=== PATIENT | female | born 1960 | race Two or more races ===

== ENCOUNTER 2025-06-13 14:57 | Emergency (ER) | payer MEDICAID, OTHER ==
[~2025-06-13] VITALS: Ht 160 cm; Wt 63.6 kg
[2025-06-13] MEDS ORDERED: EPINEPHrine HCL 1 MG/10 ML SYRG IV ONE ×2 (14:58)
[2025-06-13] MEDS ORDERED: SODIUM BICARB 8.4% 50Meq/50ml SYR INJ IV ONE (14:58)
[2025-06-13] MEDS ORDERED: CALCIUM CHLOR(10%) 100MG/ML 10ML SYRINGE IV ONE (14:58)
[2025-06-13 15:02] VITALS: BP 0/0; PULSE 0; RESP 0; TEMP 98.8; O2SAT 0
--- NOTE | 2025-06-13 15:13 | ED.PDOC ---
CPR-HPI HPI Comments This is a 65 year-old female, BIB EMS, for cardiac arrest. Per EMS, patient went down while at a restaurant. Patient was given X1 round of EPI when departing the restaurant and asystole on the monitor en route. Per EMS, patient was down X10 minutes prior to ED arrival. CPR was initiated at approximately 1445 via EMS, and continues to be in progress at this time. 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 Social History Smoker: Unobtainable Alcohol: Unobtainable Drugs: Unobtainable Lives In: Unobtainable Unable to Obtain due to: Medical Urgency All Other Systems: Deferred Physical Exam General Appearance: Severe Distress HEENT: Other (Pupils fixed dilated) Neck: NOT DONE Respiratory: Respiratory Distress, Other (Intubated the patient in the ER) Cardiovascular: Other (No pulse) Breast Exam: Deferred Gastrointestinal: Soft Genitalia: Deferred Pelvic: Deferred Rectal: Deferred Extremities: Other Musculoskeletal : Apperance: Normal Neurologic: Other (Unconscious) Cerebellar Function: NOT DONE Reflexes: NOT DONE Skin: Pallor Peripheral Pulses: 3+ Radial (R), 3+ Radial (L) Lymphatic: No Adenopathy Was a procedure done? Was a procedure done?: Yes Sedation Sedation?: No Informed consent obtained: No Intubation Indication: Altered Mental Status Pretreated with: Nothing Medicated with: Nothing Intubation Approach: Orotracheal Intubation size: cm (8.0) Informed consent obtained: No Risks/benefits/alt described: No Differential Dx CPR Differential Diagnosis: Cardiopulmonary arrest X-Ray, Labs, Meds, VS Vital Signs Date Time Temp Pulse Resp B/P (MAP) Pulse Ox O2 Delivery O2 Flow Rate FiO2 06/13/25 15:02 98.8 0 0 0/0 0 98.8 Patient unconscious pain CPR in progress pain Came in without a tube. Intubated the patient in the ER. Continuous CPR. ACLS drugs use. Family at bedside. Massive CO. Was given fluids. Was in asystole entire time. Pupils fixed and dilated. Spoke with the team. Explained to the family. Had to pronounce. Time of 1ST Reevaluation: 15:12 Reevaluation 1ST: Unchanged Patient Education/Counseling: Pt Unresponsive Family Education/Counseling: No Family Present SEPSIS Sepsis Screen Date sepsis recognized/suspect: Jun 13, 2025 Time Sepsis recognized/suspect: 1500 Recent Procedure: No On Antibiotic Therapy: No Respiratory Rate >20: No Heart Rate >90: No Temp<36 C (96.8 F) or >38.3 C: No SBP <90 or MAP <65 mmHG: No New Acute Mental Status Change: Yes Is the patient on CPAP, BIPAP,: Yes Vital Signs Date Time Temp Pulse Resp B/P (MAP) Pulse Ox O2 Delivery O2 Flow Rate FiO2 06/13/25 15:02 98.8 0 0 0/0 0 98.8 Departure 1 Departure Time of Disposition: 16:55 Impression: Primary Impression: Cardiac arrest Disposition: 20 Condition: Serious Critical Care Note Critical Care Time?: Yes (45 min-critical care time only) Heart Score Heart Score: Heart Score Response (Comments) Value History Highly Suspicious 2 EKG N/A 0 Age 45-64 1 Risk Factors N/A 0 Troponin N/A 0 Total 3 Stability Stability form required: No I personally scribed for MICHAEL CHACON MD (CHINO) on 06/13/25 at 15:13. Electronically submitted by Christina Chavez ([employer]). I personally scribed for MICHAEL CHACON MD (CHINO) on 06/13/25 at 15:27. Electronically submitted by Christina Devine[employer]). MICHAEL CHACON MD Jun 13, 2025 15:13
[2025-06-13] MEDS ORDERED: EPINEPHrine HCL 1 MG/10 ML SYRG ONE (15:15)
--- NOTE | 2025-06-13 19:28 | RESUS ---
ROGELIO CHRIS ASSESSSMENT History of Events History of Events: SECURED ROGELIO PEREZ ARRIVED AT 1456 VIA EMS WITH AUTOMATIC COMPRESSION DEVICE AND I/O TO RIGHT TIBIA Initial Information Date: Jun 13, 2025 Time: 14:56 Location of Arrest: In [place] ([place]) Arrest Witnessed: Yes CPR started by whom: Bystander (FAMILY) Pre-Hospital Care: ACLS Type of arrest: Cardiac, Adult, Witnessed Spontaneous Respirations: No Pulse Present: No Monitoring: ECG, Pulse Oximetry Crash Cart Opened and Supplies: Yes Airway Ventilation Breathing at Onset: Assisted Oxygen Delivery Method: Ambu-Bag Artificial Ventilation: Bag/Mask Intubation Size: 7.5 cuffed Intubated by: RESIDENT DR PETERS Intubation Attempts: 1 Intubated orally: Yes Tube secured at: 24 CO2 indicator used: Yes Confirmation: Auscultation, Exhaled CO2 Suctioning (Oral/Tracheal): Yes Circulation Circulation #1: Time: 14:58 Circulation Comment: [place] Circulation #2: Time: 15:00 Circulation Comment: [place] Circulation #3: Time: 15:02 Circulation Comment: [place] Circulation #4: Time: 15:04 Circulation Comment: [place] Circulation #5: Time: 15:06 Circulation Comment: PEA Circulation #6: Time: 15:08 Circulation Comment: [place] Circulation #7: Time: 15:10 Circulation Comment: [place] Circulation #8: Time: 15:12 Circulation Comment: [place] Circulation #9: Time: 15:14 Circulation Comment: [place] Defibrillation Defbrillation : Time Defibrillator Applied: 14:57 Compressions: Device Procedure - IV Procedure - IV : IV start time: 15:00 IV Side: Right IV Location: Antecubital IV Catheter Type: Peripheral IV IV Placed: RN IV Gauge: 20 IV Line Care: Saline Flush Medications & Response Medications and Responses #1: Medication Time: 14:57 ADULT Medications Given ADULT: Epinephrine 1 mg, Sodium Bacarbinate 50 meq, Calcium Chloride 10 mL Route of Administration: IO Medications and Responses #2: Medication Time: 14:59 ADULT Medications Given ADULT: Sodium Bacarbinate 50 meq Route of Administration: IO Medications and Responses #3: Medication Time: 15:00 ADULT Medications Given ADULT: Epinephrine 1 mg Route of Administration: IO Medications and Responses #4: Medication Time: 15:04 ADULT Medications Given ADULT: Epinephrine 1 mg Route of Administration: IV Medications and Responses #5: Medication Time: 15:05 ADULT Medications Given ADULT: Sodium Bacarbinate 50 meq Route of Administration: IV Medications and Responses #6: Medication Time: 15:07 ADULT Medications Given ADULT: Epinephrine 1 mg Route of Administration: IV Medications and Responses #7: Medication Time: 15:09 ADULT Medications Given ADULT: Epinephrine 1 mg Route of Administration: IV Medication Comment: EPI NOW PER DR CHACON Medications and Responses #8: Medication Time: 15:11 ADULT Medications Given ADULT: Sodium Bacarbinate 50 meq Route of Administration: IV Medications and Responses #9: Medication Time: 15:12 ADULT Medications Given ADULT: Epinephrine 1 mg Route of Administration: IV Nurses Notes Layla Coma Scale Eye Opening: None (1) Dyer Coma Scale Verbal: None (1) Layla Coma Scale Motor: None (1) Pupil Reaction: Non Reactive (5MM) Bedside Blood Glucose: 472 Time Code Ended Time Code Ended: 15:15 Post Arrest Status: Outcome of code: Unsuccessful Patient pronounced by: DR CHACON Time patient pronounced: 15:15 Family notified: Yes (AT BEDSIDE, DR RICE SPOKE WITH FAMILY) Attending called: No Code Team Present: DR FRAN GILMORE RESIDENT, JERRY HAND TOUCH UP PAINTER, BRITTANIE OKCH CHARGE, PER RN, MADIE RT, JAYASHREE RN, RYDER WOODS, [facility] STUDENT NURSE Jerry Spence Jun 13, 2025 19:28
== END 2025-06-13 16:56 ==
LOC: ER 14:57 → EDBD 14:57 → ER 16:56
DX: I46.9 Cardiac arrest, cause unspecified (principal); Z79.899 Other long term (current) drug therapy
CPT/HCPCS: 31500; 82947; 92950; 99285; J0169